=== PATIENT | female | born 1975 | race Caucasian/White ===

== ENCOUNTER → 2016-09-04 | Outpatient (CLI) | payer BC ==
[~2016-09-04] MED LIST: ADVIL200 MG PO; NORCO 5-325 TA1 EACH PO; NORFLEX100 MG PO
--- NOTE | ~2016-09-04 | 2DMMODE ---
[facility] [address] [place] [address] 2 D/M-MODE ECHOCARDIOGRAM Name: NIKIA KUMAR Room #: REG Hi#: [id number] Admission: 09/04/16 Attend Phys: Chris Herrmann Discharge: Date of : 77 Date of Service: 09/04/16 1415 Report #: [id number] THIS REPORT FOR: //name// APPROVED REPORT Study performed: 09/04/2016 12:16:41 EXAM: Comprehensive 2D, Doppler, and color-flow Echocardiogram Patient Location: Echo lab Other Information Study Quality: Good Indications Palpitations 2D Dimensions RVDd: 33.92 mm LVEF(%): 73.84 (>50%) IVSd: 12.06 (7-11mm) LVOT Diam: 17.88 (18-24mm) LVDd: 41.52 mm PWd: 11.48 (7-11mm) Ascending Ao: 33.03 (22-36mm) LVDs: 23.92 (25-40mm) Aortic Root: 29.97 mm IVC: 19.00 mm Anders's LVEF: 73.84 % Volumes Left Atrial Volume (Systole) Single Plane 4CH: 48.82 mL Single Plane 2CH: 30.88 mL LA ESV Index: 22.00 mL/m2 Aortic Valve AoV Peak Zay.: 1.55 m/s AO Peak Gr.: 9.60 mmHg LVOT Max P.73 mmHg LVOT Max V: 1.20 m/s NENO Vmax: 1.94 cm2 Mitral Valve E/A Ratio: 0.9 MV Decel. Time: 230.97 ms MV E Max Zay.: 0.81 m/s MV A Zay.: 0.93 m/s MV PHT: 66.98 ms IVRT: 71.51 ms [facility] [address] [place] [address] 2 D/M-MODE ECHOCARDIOGRAM Name: NIKIA KUMAR Room #: YOGI Do#: [id number] Admission: 09/04/16 [facility]end Phys: [facility] Discharge: Date of : 77 Date of Service: 09/04/16 1415 Report #: [id number] Pulmonary Valve PV Peak Zay.: 1.32 m/s PV Peak Gr.: 6.93 mmHg Pulmonary Vein P Vein S: 0.76 m/s P Vein A: 0.16 m/s P Vein D: 0.49 m/s P Vein A Dur.: 93.4 msec P Vein S/D Ratio: 1.55 Tricuspid Valve RAP Estimate: 5.00 mmHg Left Ventricle The left ventricle is normal size. There is normal left ventricular wall thickness. The left ventricular systolic function is normal. The left ventricular ejection fraction is within the normal range. LVEF is 65%. Mild diastolic dysfunction is present (impaired relaxation pattern). Right Ventricle The right ventricle is normal size. The right ventricular systolic function is normal. Atria The left atrium size is normal. The right atrium size is normal. Aortic Valve The aortic valve is normal in structure. No aortic regurgitation is present. There is no aortic valvular stenosis. Mitral Valve The mitral valve is normal in structure. There is no mitral valve regurgitation noted. No evidence of mitral valve stenosis. Tricuspid Valve The tricuspid valve is normal in structure. Trace tricuspid regurgitation. Unable to assess PA pressure. Pulmonic Valve The pulmonary valve is normal in structure. There is no pulmonic valvular regurgitation. Great Vessels The aortic root is normal in size. IVC is normal in size and collapses >50% with inspiration. [facility] [address] [place] [address] 2 D/M-MODE ECHOCARDIOGRAM Name: NIKIA KUMAR Room #: REG JUANY Do#: [id number] Admission: 09/04/16 Attend Phys: Chris Herrmann Discharge: Date of : 77 Date of Service: 09/04/16 1415 Report #: [id number] <Conclusion> The left ventricle is normal size. There is normal left ventricular wall thickness. The left ventricular systolic function is normal. The right ventricle is normal size. The left atrium size is normal. The right atrium size is normal. The aortic valve is normal in structure. The mitral valve is normal in structure. Trace tricuspid regurgitation. Unable to assess PA pressure. <ELECTRONICALLY SIGNED> By: Aditya Mendieta MD 09/04/16 1415 14 14 Aditya Mendieta MD /INF
== END ==
LOC: CV 02:23 → CATH 08:42 → CV 08:48
DX: R00.2 Palpitations (principal)

== ENCOUNTER 2018-03-11 06:40 | Observation (INO) | payer BC ==
[~2018-03-11] VITALS: Ht 160 cm; Wt 90.5 kg
--- NOTE | ~2018-03-11 | H ---
[facility] [address] [place] [address] HISTORY AND PHYSICAL Name: NIKIA KUMAR Room #: 207-P [facility] Abdi Do#: [id number] Admission: 03/11/18 Attend Phys: Chris Herrmann MD Discharge: 03/12/18 Date of : 77 Report #: [id number] THIS REPORT FOR: //name// CC: Helen Herrmann DATE OF SERVICE: 03/11/2018 HISTORY OF PRESENT ILLNESS: The patient is a patient with history of SVT here for an ablation. PAST MEDICAL HISTORY: See my prior note. SOCIAL HISTORY: Does not smoke. FAMILY HISTORY: Noncontributory. ALLERGIES: Reviewed. MEDICATIONS: Reviewed. PHYSICAL EXAMINATION: GENERAL: No acute distress. HEENT: Oropharynx clear. HEART: Regular rate and rhythm. LUNGS: Clear to auscultation bilaterally. ABDOMEN: Soft, nontender, nondistended. EXTREMITIES: No clubbing, cyanosis, edema. LABORATORY DATA: Have been reviewed. IMPRESSION: Supraventricular tachycardia. PLAN: We will proceed with ablation as previously documented. By: [id number] Chris Herrmann MD /nt
--- NOTE | ~2018-03-11 | P ---
[facility] [place] [address] PROCEDURE REPORT Name: NIKIA KUMAR Room #: [facility] Abdi Do#: [id number] Admission: 03/11/18 Attend Phys: Chris Herrmann MD Discharge: 03/12/18 Date of : 77 Report #: [id number] THIS REPORT FOR: //name// CC: Helen Herrmann PROCEDURE: CT ablation. PREOPERATIVE DIAGNOSIS: Supraventricular tachycardia. POSTOPERATIVE DIAGNOSIS: Concealed left-sided accessory pathway. HISTORY: The patient is a 42-year-old with a history of recurrent supraventricular tachycardia, here for an ablation. PROCEDURES PERFORMED: 1. SVT ablation, CPT code 97703. 2. EP with left atrial pacing and recording, CPT code 45325. 3. Program stimulation and pacing after IV, CPT code 49762. 4. Intracardiac echo, CPT code 01221. 5. 3D mapping, CPT code 42388. The patient was brought to the EP laboratory in a fasting and sedated state, prepped and draped in sterile fashion. She was sedated by the Anesthesiology Service using MAC. The patient was prepped and draped in a sterile fashion. I obtained access to the bilateral femoral veins placing an 8 and 6-Bruneian short sheath in the right femoral vein and a 6 and 7-Bruneian short sheath in the left femoral vein. Under fluoroscopy, I placed 3 quadripolar catheters at the HRA, His, and RV positions and a decapolar catheter in the coronary sinus, pacing and sensing was performed from all catheters. The patient was in sinus rhythm with sinus cycle length of 860 milliseconds, AL interval 160 milliseconds, QRS duration 87 milliseconds, QT interval 377 milliseconds, AH interval 95 milliseconds, and HV interval 42 milliseconds. Quickly with ventricular pacing, we noted that the patient had eccentric atrial activation, consistent with a left-sided accessory pathway. Atrial burst pacing was performed and AV block was noted at 400 milliseconds. AV sanjiv ERP was noted 280 milliseconds at [address] cycle length. With a single atrial extrastimuli, the patient would have eccentric appearing echo beats, also consistent with the pathway. There was no evidence of antegrade conduction down the accessory pathway. VA block was noted at 240 milliseconds. Isoproterenol infusion was initiated at 1 mcg per minute and with atrial burst pacing, the patient went into SVT with a tachycardia cycle length of 290 milliseconds, a septal VA time of 130 milliseconds with the eccentric atrial activation pattern. Entrainment was performed and demonstrated a VAHV response consistent with AVRT. [facility] [address] [place] [address] PROCEDURE REPORT Name: NIKIA KUMAR Room #: 207-P [facility] Abdi Do#: [id number] Admission: 03/11/18 Attend Phys: Chris Herrmann MD Discharge: 03/12/18 Date of : 77 Report #: [id number] The patient was prepped for a transseptal procedure. Ice catheter was placed into the right atrium and a detailed 3D geometry of the left atrium and mitral annulus was created using [employer]. Next, the patient was systemically heparinized and a transseptal was performed using an SL1 sheath and a Plessis needle. This was straightforward. Next, I placed a Biosense Prasad SmartTouch ThermoCool ablation catheter into the left atrium and a detailed 3D activation map was performed. An initial activation map was performed in SVT and the earliest site was ablated, but was not successful. I did 2-3 ablation lesions at this site and tachycardia did not terminate. I then performed additional mapping and I bump-terminated the tachycardia. I therefore decided to perform an activation map while pacing the ventricle and look for the earliest atrial signal. Using this method, I found another early site that was 10 mm below the other site of ablation. Ablation at this site resulted in loss of the accessory pathway in 1.5 seconds. Post-ablation EP study. Post-ablation, AV block was noted at 310 milliseconds, AV sanjiv ERP was noted 250 milliseconds at a [address] cycle length. Ventricular pacing was performed and VA block was now 350 milliseconds with midline VA conduction. VA ERP was noted at 310 milliseconds at a [address] cycle length with both midline and decremental VA conduction. IV adenosine 12 mcg was performed with ventricular pacing and there was no evidence of return of the pathway. Isoproterenol was initiated at 1 mcg per minute. AV block was noted at 320 milliseconds. AV sanjiv ERP was noted at 230 milliseconds at [address] cycle length. VA block was noted at 370 milliseconds and VERP was noted at 290 milliseconds at [address] cycle length. As such, we tested for over 30 minutes and the pathway appeared to have been eliminated. Using intracardiac ultrasound, I verified there was no pericardial effusion. Post-ablation, the patient was in sinus rhythm with sinus cycle length of 525 milliseconds, AL interval 135 milliseconds, QRS duration 90 milliseconds, QT interval 336 milliseconds, AH interval 71 milliseconds, and HV interval 35 milliseconds. As such, all catheters and sheaths were pulled. Hemostasis was obtained. The patient awoke neurologically and hemodynamically intact. No complications and no significant bleeding. CONCLUSIONS: 1. Successful ablation of a concealed left-sided accessory pathway. 2. Normal SA sanjiv function. 3. Normal His-Purkinje function. 4. No other inducible arrhythmias on or off isoproterenol. By: 1142 [id number] Chris Herrmann MD /gunjan
[~2018-03-11 06:40] MED LIST changes: +ATIVAN0.5 MG PO; +FLONASE 0.05%50 MCG NASAL; +METOPROLOL SUCC50 MG PO; +NAPROSYN500 MG PO; +TESSALON PERLE100 MG PO
[2018-03-11 06:59] VITALS: BP 166/89
[2018-03-11 07:03] LABS: ABSOLUTE NEUTROPHILS 3.7 thou/uL (1.4-8.2); BASOPHILS 0.7 % (0.0-2.0); EOSINOPHILS 1.8 % (0.0-3.0); HEMATOCRIT 36.8 % (37.0-47.0); HEMOGLOBIN 11.9 gm/dL (12.0-15.0); LYMPHOCYTES 28.7 % (24.0-44.0); MCH 27.8 pg (26.0-34.0); MCHC 32.4 g/dL (28.0-37.0); MCV 85.7 fL (80.0-100.0); MONOCYTES 8.1 % (1.0-8.0); PLATELET COUNT 441 thou/uL (150-400); POLYS 60.7 % (36.0-66.0); RBC 4.29 mil/uL (4.20-5.00); RDW 15.1 % (10.5-14.5); WBC 6.1 thou/uL (4.0-11.0)
[2018-03-11 07:12] LABS: CALCIUM 8.9 mg/dL (8.5-10.1); CREATININE 0.8 mg/dL (0.6-1.0); POTASSIUM 3.6 mmol/L (3.5-5.1)
[2018-03-11] MEDS ORDERED: ZOLOFT50 MG PO (07:16)
[2018-03-11] MEDS ORDERED: SYNTHROID25 MC1 PO (07:17)
[2018-03-11 07:18] LABS: ALBUMIN 3.7 g/dL (3.4-5.0); TOTAL BILIRUBIN 0.3 mg/dL (<0.1-1.0); TOTAL PROTEIN 7.8 g/dL (6.4-8.2)
[2018-03-11 07:40] LABS: APTT 25.2 Seconds (24.5-32.8); PROTIME 9.7 Seconds (9.3-11.4)
[2018-03-11 13:55] VITALS: BP 134/90
[2018-03-11 16:00] VITALS: BP 134/89
--- NOTE | 2018-03-11 17:46 | NUR ---
ASSUMED CARE OF PATIENT AT 1400 FROM EP LAB. PATIENT FLAT ON BACK AND ON BEDREST UNTIL 1545. SHE HAS BILATERAL GROIN SITES WHICH ARE CLEAN, DRY AND INTACT WITHOUT ANY EDEMA OR HEMATOMA. PATIENT IS LOG ROLLING TO USE THE BED PURI. HER MOTHER AND FATHER ARE AT THE BEDSIDE. PATIENT HAVING VITALS AND GROIN SITES CHECKED REGULARLY. FLOW SHEET BEING TRACKED. PATIENT RESTING COMFORTABLY WITH CALL LIGHT IN PLACE.
--- NOTE | 2018-03-11 18:21 | NUR ---
ASSUMED CARE OF PATIENT FROM EP LAB. PATIENT STAYED ON BEDREST UNTIL 1545. PATIENT THEN SAT UP AND 15 MIN LATER GOT OUT OF BED TO AMBULATE TO THE BATHROOM. BILATERAL GROIN SITES REMAIN TO BE CLEAN, DRY AND INTACT, WITHOUT EDEMA OR HEMATOMA. PATIENT IS RESTING COMFORTABLY IN BED WITH HER KIDS AT THE BEDSIDE. PATIENT STATES SHE FEELS MUCH BETTER THAN WHEN SHE WAS ADMITTED. ADMISSION COMPLETED AND PAPERWORK SIGNED. PATIENT TO CONTINUE WITH POC.
[2018-03-11 19:35] VITALS: BP 153/90
[2018-03-12 00:24] VITALS: BP 123/80
--- NOTE | 2018-03-12 02:15 | NUR ---
ASSESSMENT DOCUMENTED.PT RESTING IN NAD.VSS.S/P SVT ABLATION.MAEGAN GROINS W/O HEMATOMA.INTACT WITH DRESSING ON,CDI.VSS.SINUS RHYTHM ON MONITOR.PT DENIES ANY NEEDS AT THIS TIME.PT T DISCHARGE TO HOME TODAY.WILL CONT TO MONITOR PER POC.
[2018-03-12 04:43] VITALS: BP 115/79
[2018-03-12 07:45] VITALS: BP 127/86
[2018-03-12 09:42] VITALS: BP 127/86
[2018-03-12 10:10] VITALS: BP 127/86
== END 2018-03-12 10:20 | disposition home or self-care (01) ==
LOC: CATH 06:40 → 2N 13:51 → CATH 14:04 → ENTRNSPT 03-12 10:09 → EDTRNSPTSTS 03-12 10:12 → 2N 03-12 10:20
PROVIDERS: ADMIT Internal Medicine Cardiovascular Disease
DX: I47.1 Supraventricular tachycardia (principal); R05 Cough; J06.9 Acute upper respiratory infection, unspecified; Z79.899 Other long term (current) drug therapy
CPT/HCPCS: 62110; 62900; 70005